=== PATIENT | female | born 1935 | race Caucasian/White ===

== ENCOUNTER 2024-08-18 15:54 | Outpatient (CLI) | payer MEDICARE, SELFPAY ==
--- NOTE | 2024-08-18 16:00 | XR_ITS ---
FINAL REPORT CLINICAL HISTORY: Foot pain COMPARISON: None FINDINGS: LEFT FOOT Three views of the left foot demonstrate no acute fracture or dislocation. There is moderate joint space narrowing involving the first MTP joint. A small accessory navicular is noted. The soft tissues are unremarkable. IMPRESSION: Moderate joint space narrowing of the first MTP joint, with no acute bony abnormality. Reviewed, Interpreted and Dictated by Renaldo Spencer MD Transcribed by Kelsea Smith Authenticated and [facility]
== END 2024-08-18 23:59 | disposition home or self-care (01) ==
LOC: RAD 15:56
PROVIDERS: PCP Family Medicine; Visit Provider Podiatrist
DX: M79.672 Pain in left foot (principal)
CPT/HCPCS: 73630

== ENCOUNTER 2025-05-05 14:46 | Emergency (ER) | payer MEDICARE, SELFPAY ==
--- OUTSIDE RECORDS SUMMARY | 2025-03-21 20:00 | XMS_ITS | Continuity of Care Document ---
Author Organization [address] [place] [address] Address [address] [facility] [address] [place] [address] Phone Care Team Providers Care Chaser Apprentice Name Role Phone Bart HAWK, Alex Unavailable Unavailable Allergies, Adverse Reactions, Alerts Substance Reaction Status Criticality moxifloxacin Active No Information metoclopramide Active No Informatio n Vjiuebt-JTM-EhI Reductase Inhibitors Acti ve No Information DIMETHYLGLYCINE Active No Informati on azithromycin Active No Information lisinopril Active No Information Medications Medication Instructions Dosage Effective Dates (start - stop) Status Comments clopidogrel 75 mg tablet - Active ezetimibe 10 mg tablet - Act austin Jardiance 10 mg tablet - Act austin levothyroxine 50 mcg tablet - Active metoprolol succinate ER 25 mg tablet,extended release 24 hr - Active venlafaxine ER 150 mg capsule,extended release 24 hr - Active ibuprofen 600 mg tablet - Ac tive levothyroxine 25 mcg tablet - Active tamsulosin 0.4 mg capsule - Active fluconazole 150 mg tablet - Active polyethylene glycol 3350 17 gram/dose oral powder dissolve 17 grams( 1 capful) in 8 ounces of liquid and drink 2 (Two) Times a Day As Needed (to produce daily BM). - Active losartan 100 mg-hydrochlorothiazide 25 mg tablet take ONE-HALF TABLET BY MOUTH EVERY DAY - Active pantoprazole 40 mg tablet,delayed release Take 1 tablet by mouth Every Morning. - Active aspirin 81 mg tablet,delayed release TAKE ONE TABLET BY MOUTH DAILY - Active nitroglycerin 0.[address] 1 tablet under the tongue Every 5 Minutes As Needed for Chest Pain (Systolic BP Greater Than 100). Take no more than 3 doses in 15 minutes. - Active Procedures Procedure Date Trim Dystrophic nail(s) DEBRIDE NAIL 6 OR MORE Debride mycotic, thick nails 6 or more J Trim nail(s) DEBRIDE NAIL 1-5 [facility] NF CARE LOW MDM 20 DEBRIDE NAIL 1-5 Trim nail(s) DEBRIDE NAIL 1-5 Trim nail(s) Low extemity neur exam docum Advance Directives Directive Yes / No Effective Date File Name No Information Encounters Encounter Description Practice Location Reason(s) For Visit Diagnoses Date Provider Providers Copied on Encounter [facility], [address] [place] [address], [id number], tel:[phone] [facility] Type 2 diabetes mellitus with diabetic peripheral angiopathy without gangreneNail dystrophyOnycho gryphosisOther specified peripheral vascular diseases 5 [place], [place]. [facility], [id number] [place] [address], [id number], tel:[phone] [facility] Nail dystrophyOnycho gryphosisOther specified peripheral vascular diseasesType 2 diabetes mellitus with diabetic peripheral angiopathy without gangrene 5 [place], [place] [facility], [address] [facility] [address], [place], [id number], tel:[phone] [facility] Nail dystrophyOnycho gryphosisOther specified peripheral vascular diseases 4 [place], [place]. [address] [place] [address], [address] [facility], [place], [place], [id number], tel:[phone] [facility] Tinea unguiumNail dystrophyType 2 diabetes mellitus with diabetic peripheral angiopathy without gangrene 4 Garth Obando. [address] [facility], [address], [place], [address], . Referring Provider: Ric Greene. [address] [place] [address], [address] [facility], [place], [place], [id number], tel:[phone] [facility] Nail dystrophyTinea unguiumType 2 diabetes mellitus with diabetic peripheral angiopathy without gangrene 4 Garth Obando. [address] [facility], [address], [place], [address], . Referring Provider: Ric Greene. [address] [place] [address], [address] [facility], [place], [place], [id number], [phone] [facility] No Information 4 Garth Obando. [address] [facility], [address], [place], [address], [place]. Family History Family Member Type Diagnosis Age At Onset No Information Payers Payer name Insurance type Covered libertarian ID Authoriza tion(s) [employer] Medicare MB [id number] Social History Type Description Quantity Date Captured Comments Alcohol Use Details Unknown Caffeine Use Details Unknown Tobacco Use Status No Information Smoking Status No Information Sex Female Chief Complaint And Reason For Visit No Information Reason For Referral Reason For Referral No Information History Of Present Illness Encounter Date Complaint History Of Prese nt Illness No Information Functional Status Date Functional Assessmen t No Information Instructions Date Instruction Additional Infor christopher This is a chronic st able problem, Will reassess and follow up in 2-3 months Related to Type 2 diabetes mellitus with diabetic peripheral angiopathy without gangrene All documented dystr ophic nails were reduced in length as needed to prevent pain and other symptoms. Related to Nail dystrophy All of the documente d thickened nails (which includes those nails 2 mm or more in thickness, and possible mycotic component to the nails) were debrided in both length and thickness using both a nail nipper and an electric rotary internal grinder set up operator in an atraumatic fashion; this was performed in an attempt to prevent pain and reduce risk of infection. Alcohol applied to the digits afterwards. Related to Onychogryphosis Discussed using comp ression stockings to assist in localize swelling and venous return, and the intermediate benefits of using compression stockings. Reinforced the importance of proper adherence to using the mitchell hose, and compression stockings. Will continue to monitor. Related to Other specified peripheral vascular diseases All documented dystr ophic nails were reduced in length as needed to prevent pain and other symptoms. Related to Nail dystrophy All documented thick ened nails were debrided using a rotary tool and nail nipper. Related to Onychogryphosis Discussed using comp ression stockings to assist in localize swelling and venous return, and the longwall foreman benefits of using compression stockings. Reinforced the importance of proper adherence to using the mitchell hose, and compression stockings. Will continue to monitor. Related to Other specified peripheral vascular diseases This is a chronic st able problem, Will reassess and follow up in 2-3 months Related to Type 2 diabetes mellitus with diabetic peripheral angiopathy without gangrene All documented dystr ophic nails were reduced in length as needed to prevent pain and other symptoms. Related to Nail dystrophy All documented thick ened nails were debrided using a rotary tool and nail nipper. 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 Related to Nail dystrophy Toenails 1 b/l were debrided in length and thickness without incident. Follow up in 2-3 months. Related to Tinea unguium Toenails 1 b/l were debrided in length and thickness without incident. Follow up in 2-3 months. 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 Related to Nail dystrophy Assessments Type Assessment Date assessment Type 2 diabetes daniella itus with diabetic peripheral angiopathy without gangrene assessment Nail dystrophy assessment Onychogryphosis assessment Other specified peripheral vascu lar diseases Patient Care Teams Name Effective Dates (start - stop) Status Members No Information
[2025-05-05] VITALS (12 sets, daily range): BP systolic 119–154; BP diastolic 31–119; PULSE 75–87; RESP 11–20; TEMP 36.6–37.2; O2SAT 91–97; BMI 31.6
--- NOTE | 2025-05-05 14:46 | CT_ITS ---
FINAL REPORT TECHNIQUE: Thin section axial images were obtained from skull base to vertex without contrast. Coronal reconstruction images were obtained from the axial data. Exam was performed using dose reduction techniques such as automated exposure control, adjustment of the mA and kV according to patient size, and use of iterative reconstruction technique. CLINICAL HISTORY: trauma, critical injury suspected FINDINGS: There is atrophy. No mass effect or midline shift. No intracranial hemorrhage. No hydrocephalus. Periventricular low density is likely related to changes of chronic small vessel ischemia. The basilar cisterns are preserved. The posterior fossa is without acute abnormality. The soft tissues are without acute abnormality. No acute osseous abnormality is identified. IMPRESSION: No acute intracranial abnormality. Atrophy and changes suggesting chronic small vessel ischemia. Reviewed, Interpreted and Dictated by Loree Dias MD Transcribed by Mariela Garcia Authenticated and [facility]
--- NOTE | 2025-05-05 14:46 | CT_ITS ---
FINAL REPORT TECHNIQUE: Thin section axial images were obtained through the lumbar spine without contrast. Sagittal and coronal reconstruction images were obtained from the axial data. Exam was performed using dose reduction techniques. CLINICAL HISTORY: trauma, critical injury suspected FINDINGS: There is no acute fracture or acute malalignment of the lumbar spine. Vertebral body height is preserved. There is multilevel degenerative disc disease, most pronounced at L4-5 and L5-S1. There is no significant central stenosis. Paraspinal soft tissues are within normal limits. There is no paraspinal mass or fluid collection. IMPRESSION: No acute abnormality of the lumbar spine. Mild multilevel degenerative disease. Reviewed, Interpreted and Dictated by Loree Dias MD Transcribed by Mariela Garcia Authenticated and [facility]
--- NOTE | 2025-05-05 14:46 | CT_ITS ---
FINAL REPORT TECHNIQUE: Thin section axial images were obtained through the cervical spine without contrast. Multiplanar reconstruction images were obtained from the axial data. Exam was performed using dose reduction techniques. CLINICAL HISTORY: trauma, critical injury suspected FINDINGS: No fractures identified. There is reversal of the cervical lordosis which may be due to spasm or strain. There is anterolisthesis of C3 on 4 and C4 on 5, likely degenerative. Multilevel degenerative disc disease is identified, most pronounced at C5-6 and C6-7. There is no evidence of unilateral or bilateral facet lock. Vertebral body height is preserved. No acute paraspinal abnormality is identified. IMPRESSION: Degenerative disc disease without acute bony abnormality. Reviewed, Interpreted and Dictated by Loree Dias MD Transcribed by Mariela Garcia Authenticated and . [facility]
--- NOTE | 2025-05-05 14:46 | CT_ITS ---
FINAL REPORT TECHNIQUE: Thin section axial images were obtained through the thoracic spine without contrast. Sagittal and coronal images were obtained from the axial data. This study was performed with techniques to keep radiation doses as low as reasonably achievable, (ALARA). Individualized dose reduction techniques using automated exposure control or adjustment of mA and/or kV according to the patient's size were employed. CLINICAL HISTORY: trauma, critical injury suspected FINDINGS: There is a fracture involving the superior endplate of T9 with less than 25% loss of vertebral body height, favor subacute. This extends to the posterior cortex. There is a compression fracture of T12 with slightly greater than 50% loss of vertebral body height anteriorly. This is also age-indeterminate but has a more chronic appearance. Moderate multilevel degenerative disc disease is identified. There is no malalignment. Limited images of the lungs showed changes that are likely related to chronic interstitial lung disease although pulmonary edema is not excluded. IMPRESSION: Fracture at the superior endplate of T9, likely acute. This extends to the posterior cortex. Consider MRI. Compression fracture of T12 which is age-indeterminate but appears chronic. Reviewed, Interpreted and Dictated by Loree Dias MD Transcribed by Mariela Garcia Authenticated and [facility]
--- NOTE | 2025-05-05 14:47 | CT_ITS ---
FINAL REPORT TECHNIQUE: Axial images through the pelvis were performed by computed tomography. Reformatted images were obtained and reviewed. This study was performed with techniques to keep radiation doses as low as reasonably achievable, (ALARA). Individualized dose reduction techniques using automated exposure control or adjustment of mA and/or kV according to the patient's size were employed. CLINICAL HISTORY: pelvic pain FINDINGS: There is no acute osseous abnormality of the pelvis or either hip. There is degenerative joint disease of the hips bilaterally as well as the sacroiliac joints bilaterally. No acute soft tissue abnormality is identified. IMPRESSION: Degenerative joint disc disease without acute osseous abnormality. Reviewed, Interpreted and Dictated by Loree Dias MD Transcribed by Mariela Garcia Authenticated and [facility]
--- NOTE | 2025-05-05 14:59 | ECG_ITS ---
APPROVED REPORT Exam: Resting ECG HR:76 bpm ECG Measurements Heart Rate 76 AXES NV 252 P 178 QRSd 108 QRS -43 QT 432 T 2 QTc 463 Conclusion SINUS RHYTHM WITH FIRST DEGREE AV BLOCK LEFT AXIS DEVIATION [QRS AXIS < -30] ANTEROSEPTAL MYOCARDIAL INFARCTION , OF INDETERMINATE AGE [40+ ms Q WAVE IN V1-V4] ABNORMAL ECG UNCONFIRMED REPORT Electronically signed by : Gerard Drake, 05/05/2025 23:04:12
--- NOTE | 2025-05-05 15:13 | PC.NURSE ---
pt to CT at this time
--- NOTE | 2025-05-05 15:15 | ED_ITS ---
<Statement entered by Ian Drake MD - 05/05/25 23:01> I was consulted by the MARY ANNE, and we discussed the complexity of the problems being addressed. I approved the treatment and management plan for this patient's care in the emergency department, thus performing a substantive portion of the medical decision making. Ian Drake MD, TITI, FACEP Discharge Plan Disposition Patient Disposition: Home, Self-Care Prescriptions Prescriptions: No Action acetaminophen 325 mg capsule 325 mg PO QID PRN aspirin 81 mg tablet,delayed release (DR/EC) 81 mg PO DAILY cholecalciferol (vitamin D3) 25 mcg (1,000 unit) capsule 25 mcg PO DAILY ezetimibe 10 mg tablet 10 mg PO DAILY Jardiance 10 mg tablet 10 mg PO DAILY levothyroxine 50 mcg capsule 50 mcg PO DAILY metoprolol succinate 25 mg tablet extended release 24 hr 25 mg PO DAILY polyethylene glycol 3350 [Miralax] 17 gram/dose powder 17 g PO DAILY venlafaxine 150 mg capsule,extended release 24hr 150 mg PO DAILY cyanocobalamin (vitamin B-12) 1,000 mcg capsule 1,000 mcg PO DAILY ibuprofen [IBU] 600 mg tablet 600 mg PO TID furosemide 20 mg tablet 20 mg PO DAILY mupirocin 2 % ointment 1 applic topical BID 14 Days Qty: 15 0RF Referrals Follow up/Referrals: Wilder Helm DO [Staff Physician, Orthopedics] - See instructions Provider,Referral, [Primary Care Provider, Medical] - See instructions Activity Restrictions/Add. Instructions Additional Instructions/Restrictions: Have minh removed in 10 to 14 days. Apply ice and take Tylenol for pain. Please follow-up with PCP and Ortho. Clinical Impressions Clinical Impression: Compression fracture, Fracture of T9 vertebra, Fall Instructions Patient Instructions: How to Prevent Falls Print Language Print Language: Tongan Discharge ED Provider: Ian Drake General Adult HPI General Chief complaint: Fall Stated complaint: Fall Time Seen by Provider: 05/05/25 14:49 Mode of Arrival: EMS Source of Information: Patient and EMS Description of Symptoms (Recalled from ER Triage Doc. by RN): pt presents to ED for fall. [facility] [place]. pt had fall out of wheelchair. hit head on airconditioner unit. laceration to back of head. pt presents with c collar in place. ems states pt was 90% upon their arrival, 2L applied. pt 90% here with 2L NC applied, sats impored 97%. no history of oxygen use. 81mg ASA daily use. pt reports pain in left hip, and head. History of Present Illness HPI narrative: 89-year-old female [facility]. She uses a wheelchair and walker and it appeared that she was trying not to use the walker and fell hitting her head on the air conditioner unit. She has a laceration on the back of her head. She did complain of head pain and neck pain to EMS. She was placed in a c-collar prior to arrival to the ED. Patient was 90% O2 on arrival by EMS they placed her on 2 L and she returned to 97%. Patient does use aspirin every day. She also complains of pain in her left hip. Patient does have periods of dementia. She is confused to location. She does have a history of diabetes, dementia and a dual pacer. Related Data Home Medications ?Medication ?Instructions ?Recorded ?Confirmed acetaminophen 325 mg capsule 325 mg PO QID PRN 4 09/12/24 aspirin 81 mg tablet,delayed 81 mg PO DAILY 08/18/24 1 release cholecalciferol (vitamin D3) 25 25 mcg PO DAILY 09/12/24 mcg (1,000 unit) capsule cyanocobalamin (vitamin B-12) 1,000 mcg PO DAILY 08/1809/12/24 1,000 mcg capsule empagliflozin 10 mg tablet 10 mg PO DAILY 08/18/24 (Jardiance) ezetimibe 10 mg tablet 10 mg PO DAILY 08/18/2408/30 furosemide 20 mg tablet 20 mg PO DAILY 08/18/2408/30 ibuprofen 600 mg tablet (IBU) 600 mg PO TID 08/18/24 1 levothyroxine 50 mcg capsule 50 mcg PO DAILY 08/18/24 09/12/24 metoprolol succinate 25 mg 25 mg PO DAILY 08/18/24 tablet,extended release 24 hr polyethylene glycol 3350 17 17 g PO DAILY 08/18/24 gram/dose oral powder (Miralax) venlafaxine 150 mg 150 mg PO DAILY 08/18/24 capsule,extended release 24 hr Previous Rx's ?Medication ?Instructions ?Recorded mupirocin 2 % topical ointment 1 applic topical BID in fection 14 08/18/24 days #15 grams Allergies Allergy/AdvReac Type Severity Reaction Status Date / Time azithromycin Allergy Mild Rash Verified 09/12/24 14:57 lisinopril Allergy Mild Verified 09/12/24 14:57 moxifloxacin Allergy Mild Verified 09/12/24 14:57 [id number] Reductase Allergy Mild Verified 09/12/24 14:57 Inhibitor dimethylamine Allergy Mild Uncoded 08/18/24 14:48 [facility] Disclaimer: The information contained in this section may have been updated after the patient was seen, as this information can be updated by other users. Family History Father Asthma Coronary artery disease Hypertension Mother Coronary artery disease Heart attack Hypertension Stroke Sister Thyroid disorder Social History Smoking Status: Never smoker alcohol intake: never current occupational status: retired Travel in the last 8 weeks?: None Have you lived/traveled outside [place] in past 30 days?: No Contact w/someone who lives/traveled outside US past 30 days?: No Exposure to someone with infectious disease in past 14 days?: No Do you have a fever (greater than 100.4 F or 38 C)?: No Have you tested positive for COVID-19?: No Exposed to someone with COVID-19 in past 14 days?: No Do you have a sore throat?: No Do you have a cough?: No Do you have any weakness?: No Do you have any diarrhea?: No Are you experiencing any unusual bleeding?: No Do you have any muscle aches/pain?: No Do you have any abdominal pain?: No Are you experiencing loss of taste or smell?: No Other Medical History Have you received the Pneumonia Vaccine: Yes ROS Obtained: Yes Systems reviewed as appropriate & no additional complaints except as documented Constitutional Constitutional: Reports as per HPI Physical Exam General General appearance: alert Comment: Confused to location Head Head exam: normocephalic and other (Laceration to the back of her head) Eye Eye exam: Present PERRL and EOMI ENT ENT exam: Present normal oropharynx and mucous membranes moist Neck Neck exam: Present trachea midline and other (C-collar in place) Respiratory Respiratory exam: Present normal lung sounds bilaterally Cardiovascular Cardiovascular exam: Present regular rate, normal rhythm, normal heart sounds, +S1 and +S2 Abdominal Exam Abdominal exam: Present soft and normal bowel sounds Extremities Exam Extremities exam: Present normal inspection, full ROM and normal capillary refill Back Exam Back exam: Present normal inspection Neurological Exam Neurological exam: Present alert and other (Confused to location) Skin Skin exam: Present warm, dry and other (Laceration to back of her head) Medical Decision Making Medical Records Screening: Per USPSTF and CDC recommendations, given the prevalence of disease in our region, it is our hospital?s policy to screen for HIV and viral Hepatitis for all patients aged 18 and over and those with ongoing risk factors. Kennedy Inquiry Pt receiving controlled substance: No Kennedy was queried for this patient: No Vital Signs: 05/05/25 14:51 05/05/25 14:59 05/05/25 15:01 Temperature 98.9 F Temperature Source Oral Pulse Rate 75 76 Pulse Rate [Left Radial] 77 Respiratory Rate 16 14 18 Blood Pressure 136/49 L 119/101 H Blood Pressure [Right Arm] 119/101 H Blood Pressure Mean [Right Arm] 107 Blood Pressure Source [Right Arm] Automatic Cuff Blood Pressure Position [Right Arm] Sitting 02 Sat by Pulse Oximetry 97 97 96 Oxygen Delivery Method Nasal Cannula Oxygen Flow Rate (LPM) 2 05/05/25 15:31 05/05/25 16:01 05/05/25 16:30 Temperature Temperature Source Pulse Rate 76 77 Pulse Rate [Left Radial] Respiratory Rate 19 15 17 Blood Pressure 145/31 H 130/66 136/59 L Blood Pressure [Right Arm] Blood Pressure Mean [Right Arm] Blood Pressure Source [Right Arm] Blood Pressure Position [Right Arm] 02 Sat by Pulse Oximetry 95 96 Oxygen Delivery Method Oxygen Flow Rate (LPM) 05/05/25 17:01 05/05/25 17:30 05/05/25 18:01 Temperature Temperature Source Pulse Rate Pulse Rate [Left Radial] Respiratory Rate 15 15 11 L Blood Pressure 140/54 L 138/119 H 154/83 H Blood Pressure [Right Arm] Blood Pressure Mean [Right Arm] Blood Pressure Source [Right Arm] Blood Pressure Position [Right Arm] 02 Sat by Pulse Oximetry Oxygen Delivery Method Oxygen Flow Rate (LPM) 05/05/25 18:31 05/05/25 19:00 05/05/25 19:48 Temperature 97.9 F Temperature Source Oral Pulse Rate 83 87 Pulse Rate [Left Radial] Respiratory Rate 19 20 16 Blood Pressure 143/118 H 149/66 H 144/71 H Blood Pressure [Right Arm] Blood Pressure Mean [Right Arm] Blood Pressure Source [Right Arm] Blood Pressure Position [Right Arm] 02 Sat by Pulse Oximetry 91 L Oxygen Delivery Method Room Air Oxygen Flow Rate (LPM) Lab Data Lab Results 05/05/25 14:47: HCV Ab SEBASTIÁN w/Rflx PCR Qn Negative, HIV Ag/Ab Combo Qual Negative Orders (Tests/Meds): ED MEDICATIONS Discontinued Medications Generic Name Dose Route Start Last Admin Trade Name Freq PRN Reason Stop Dose Admin Acetaminophen 1,000 mg 05/05/25 17:59 05/05/25 18:00 Acetaminophen 500mg Tab PO 05/05/25 18:00 1,000 mg ONCE ONE Administration Tetanus/Diphtheria Toxoids 0.5 ml 05/05/25 14:46 05/05/25 15:58 Tetanus-Diphth Toxoid, Adult 0.5ml Syr IM 05/05/25 14:47 Not Given .ONCE ONE Tetanus/Reduced Diphtheria/Acell Pertussis 0.5 ml 05/05/25 15:58 05/05/25 16:03 Tet/Diphth/Pert-Adult 0.5ml Syringe IM 05/05/25 15:59 0.5 ml .ONCE ONE Administration ORDERS Category Date Time Status CT bony pelvis Stat Cat Scan 05/05/25 14:[address] cervical spine wo con Stat Cat Scan 05/05/25 14:[address] head/brain wo con Stat Cat Scan 05/05/25 14:[address] lumbar spine wo con Stat Cat Scan 05/05/25 14:[address] thoracic spine wo con Stat Cat Scan 05/05/25 14:46 Completed HIV Combo Stat Lab 05/05/25 14:47 Completed Hepatitis C Ab Qual. W/ RFX Stat Lab 05/05/25 14:47 Completed Medical Decision Narrative: patient is a 89-year-old female presenting to the emergency department for evaluation of fall hitting her head on the air conditioner causing laceration to the back of her head. [facility].. Patient is hemodynamically stable and nontoxic-appearing upon arrival, afebrile. Differential diagnosis includes's sprain strain fracture to neck, head, hip, among others. Workup will be conducted with hematologic labs, specific imaging. Initial inventions include scans. CT scan of head and neck c reilly back negative. Remove the C collar. The rest of patient's scans are back please see results on radiology report. Patient does have a superior endplate fracture of the T9 with less than 25% height loss. Patient also has an age- indeterminate compression fracture of T12 with greater than 50% loss of vertebral body height. This is an old fracture. Patient had this fracture in January. Patient will follow-up with Ortho. I also placed 2 minh in a small laceration on the back of her head. Patient told to have these removed in 2 weeks. Patient safe for [facility] home to [facility]. Procedures Laceration Laceration 1: Site: scalp Size (cm): 2 Description: irregular Depth: simple, single layer Pre-repair: wound explored Skin layer closed with: other (2 minh patient tolerated unwell and asked me to stop after 2 minh were placed) Critical Care Critical Care Time Critical Care Time: No
--- OUTSIDE RECORDS SUMMARY | 2025-05-05 15:22 | XMS_ITS ---
Author Name Auto Generated, Auto Generated Organization [facility] Address [address] [place] [address] Phone [phone] Care Team Providers Care Pathology Collector Name Role Phone Tigre Rodriguez Unavailable [phone] Functional Status No Results Mental Status No Results Allergies and Intolerances Name Onset Date Reaction Severity [id number] Reductase Inhibitors (Allergy) M on Dec 05 13:16:00 EST 2024 moxifloxacin (Allergy) ThuDec 05 13:16:00 EST 2 025 metoclopramide (Allergy) ThuDec 05 13:16:00 EST 2024 azithromycin (Allergy) ThuDec 05 13:15:00 EST 2 025 lisinopril (Allergy) ThuDec 05 13:15:00 EST 202 Encounters Program Name Primary Diagnosis Admission Date/Time Dis charge Date/Time null Atherosclerotic hear t disease of [place] coronary artery without angina pectoris ThuDec 04 19:00:00 EST 2024 Medications Medication Directions Start Date End Date traMADoL 100 mg tablet 1 Tablet Oral Karine ry 6 Hours Indication: pain ThuApril 14 00:00:00 EDT 2024 diazePAM 2 mg tablet 1 Tablet Oral PRN E very 6 Hours for 14 Days Indication: anxiety ThuApril 14 00:00:00 EDT 2024 Fabiana April 27 23:59:00 EDT 2024 traMADoL 50 mg tablet 1 Tablet Oral PRN Every 6 Hours Indication: pain ThuApril 05 00:00:00 EDT 2024 Problems No Known Problems Social History Social History Observation Description Date Smoking Status Unknown if ever smoked Mon Nazario 0 6 00:00:00 EST 2024 Sex Female ThuFeb 12 00:00 :00 EST 193 Reason for Referral
--- NOTE | 2025-05-05 15:39 | PC.NURSE ---
Went bedside and attempted to gain a catheterized urine specimen. The pt was unable to tolerate the cath. She kept closing her legs and clamping down. One unsuccessful attempt made. pt placed on a pure wick at this time. no needs voiced. call vazquez in reach. notified.
[2025-05-05] MEDS: TET/DIPHTH/PERT-ADULT 0.5ML SYRINGE 0.5 ML IM (16:03)
[2025-05-05] MEDS: ACETAMINOPHEN 500MG TAB 1000 MG PO (18:00)
--- NOTE | 2025-05-05 18:09 | PC.NURSE ---
report called to [facility] for pt to return to facility.
[2025-05-05 19:28] LABS: HIV Combo NEGATIVE (Negative)
[2025-05-05 19:36] LABS: Hepatitis C Ab Qual. W/ RFX NEGATIVE (Negative)
== END 2025-05-05 19:57 | disposition home or self-care (01) ==
PROVIDERS: Nurse Practitioner; Emergency Provider Student in an Organized Health Care Education/Training Program
DX: S22.080A Wedge compression fracture of T11-T12 vertebra, initial encounter for closed fracture (principal); S22.070A Wedge compression fracture of T9-T10 vertebra, initial encounter for closed fracture; S01.01XA Laceration without foreign body of scalp, initial encounter; W05.0XXA Fall from non-moving wheelchair, initial encounter; Z11.59 Encounter for screening for other viral diseases; Z11.4 Encounter for screening for human immunodeficiency virus [HIV]
CPT/HCPCS: 12001; 70450; 72125; 72128; 72131; 72192; 80074; 87389; 90471; 90715; 93005; 99285